=== PATIENT | female | born 1980 | race Hispanic/Latino ===

== ENCOUNTER 2022-05-28 11:29 | Emergency (ER) | payer OTHER ==
[~2022-05-28] VITALS: Ht 160 cm; Wt 74.8 kg
[2022-05-28 14:41] LABS: BASOPHILS # (AUTO) 0.1 (0.0-0.1); BASOPHILS % 0.8 % (0.0-1.0); EOSINOPHILS # (AUTO) 0.1 (0.0-0.4); EOSINOPHILS % 1.6 % (0.0-6.0); HEMOGLOBIN 8.1 g/dL (12.0-16.0); LYMPHOCYTES # (AUTO) 2.5 (1.0-3.2); LYMPHOCYTES % 28.9 % (18.0-39.1); MEAN CORPUSCULAR HEMOGLOBIN 19.1 pg (28-32); MEAN CORPUSCULAR HGB CONC 26.1 g/dL (31-35); MEAN CORPUSCULAR VOLUME 72.9 fL (81-99); MONOCYTES # (AUTO) 0.8 (0.2-0.8); MONOCYTES % 8.7 % (4.4-11.3); NEUTROPHILS # (AUTO) 5.2 (2.1-6.9); NEUTROPHILS % 59.4 % (38.7-80.0); PLATELET COUNT 550 x10e3/uL (140-360); RED BLOOD COUNT 4.25 x10e6/uL (3.6-5.1); RED CELL DISTRIBUTION WIDTH 18.3 % (11.7-14.4)
[2022-05-28 15:00] LABS: INR 0.92; PROTHROMBIN TIME 13.2 seconds (11.9-14.5)
[2022-05-28 15:07] LABS: ALBUMIN 4.3 g/dL (3.5-5.0); ALBUMIN/GLOBULIN RATIO 1.3 (0.8-2.0); ANION GAP 16.7 mmol/L (8-16); CALCIUM 8.9 mg/dL (8.4-10.2); CREATININE, SERUM 0.85 mg/dL (0.57-1.11); MAGNESIUM 2.1 MG/DL (1.3-2.1); POTASSIUM 3.7 mmol/L (3.5-5.1)
== END 2022-05-28 18:50 | disposition home or self-care (01) ==
LOC: ER 11:47
DX: R50.9 Fever, unspecified (principal); D64.9 Anemia, unspecified; D25.9 Leiomyoma of uterus, unspecified; R53.1 Weakness
CPT/HCPCS: 36415; 76830; 76856; 80053; 83735; 84702; 85025; 85610; 85730; 86850; 86900; 99284